=== PATIENT | female | born 1955 | race Caucasian/White ===

== ENCOUNTER → 2017-09-12 | Outpatient (CLI) | payer BC ==
--- NOTE | 2017-09-12 15:28 | BD ---
EXAMINATION TYPE: Axial Bone Density DATE OF EXAM: 09/12/2017 COMPARISON: NONE CLINICAL HISTORY: Postmenopausal female Height: 5 FT 1 1/2 IN Weight: 151 FRAX RISK QUESTIONS: RISK FACTORS HISTORY OF: Active: YES Postmenopausal woman: AGE 58 MEDICATIONS: Thyroid Medications: YES Which medication: LEVOTHYROXINE How Lon-4 MONTHS Additional Medications: LEVOTHYROXINE Additional History: EXAM MEASUREMENTS: Bone mineral densitometry was performed using the [employer]. Bone mineral density as measured about the Lumbar spine is: ----- L1-L4(G/cm2): 1.060 T Score Values are as follows: ----- L2: -1.6 ----- L3: -0.4 ----- L4: -0.9 ----- L1-L4: -1.0 BASELINE Bone mineral density about the R hip (g/cm2): 0.926 Bone mineral density about the L hip (g/cm2): 0.948 T Score values are as follows: -----R Neck: -0.8 -----L Neck: -0.6 -----R Total: 0.1 -----L Total: 0.6 BASELINE IMPRESSION: Osteopenia (T Score between -2.5 and -1) at 2 consecutive levels in the low back. There is slightly increased risk of fracture and the patient may be considered for treatment. Re-Screen 2-5 years. NOTE: T-SCORE=SD OF THE YOUNG ADULT MEAN.
--- NOTE | 2017-09-18 12:36 | MM ---
Reason for exam: screening (asymptomatic). Last mammogram was performed 9 years and 9 months ago. History: Patient is postmenopausal and had first child at age 32. Physical Findings: A clinical breast exam by your physician is recommended on an annual basis and results should be correlated with mammographic findings. MG 3D Screening Mammo W/Cad Bilateral CC and MLO view(s) were taken. Prior study comparison: December 16, 2007, mammogram, performed at [facility]. The breast tissue is heterogeneously dense. This may lower the sensitivity of mammography. There is no discrete abnormality. No significant changes when compared with prior studies. ASSESSMENT: Negative, BI-RAD 1 RECOMMENDATION: Routine screening mammogram of both breasts in 1 year.
== END | disposition home or self-care (01) ==
LOC: RADMAMWWP 12:31
PROVIDERS: ATTEND Family Medicine
DX: Z12.31 Encounter for screening mammogram for malignant neoplasm of breast (principal); M85.80 Other specified disorders of bone density and structure, unspecified site
CPT/HCPCS: 77063; 77067; 77080

== ENCOUNTER → 2020-02-29 | Outpatient (CLI) | payer BC ==
--- NOTE | 2020-03-01 14:21 | MM ---
Reason for exam: screening (asymptomatic). Last mammogram was performed 2 years and 6 months ago. History: Patient is postmenopausal and had first child at age 32. Took hormonal contraceptives for 8 months. Physical Findings: A clinical breast exam by your physician is recommended on an annual basis and results should be correlated with mammographic findings. MG 3D Screening Mammo W/Cad Bilateral CC and MLO view(s) were taken. No prior studies available for comparison. There are scattered fibroglandular densities. There is no discrete abnormality. ASSESSMENT: Negative, BI-RAD 1 RECOMMENDATION: Routine screening mammogram of both breasts in 1 year.
== END | disposition home or self-care (01) ==
LOC: RADMAMWWP 14:35
PROVIDERS: ATTEND Family Medicine
DX: Z12.31 Encounter for screening mammogram for malignant neoplasm of breast (principal)
CPT/HCPCS: 77063; 77067

== ENCOUNTER → 2021-06-16 | Outpatient (CLI) | payer MEDICARE, BC ==
--- NOTE | 2021-06-17 07:54 | CT ---
EXAMINATION TYPE: CT facial bones wo con DATE OF EXAM: 06/16/2021 COMPARISON: none HISTORY: facial pressure on left nasal CT DLP: 465.[address] of the paranasal sinuses was performed in the axial and coronal planes. Bone and soft tissue settings are submitted. None hypoplastic frontal sinuses are noted. The remaining paranasal sinuses demonstrate normal aerati on and development. The paranasal sinuses are free of mucosal thickening or air fluid level. The osteal meatal units are patent bilaterally. There is mild nasal septal deviation from right to left. No bony destructive changes are seen within the field of view. IMPRESSION: No evidence for sinusitis at this time. Nasal septal deviation from right to left mild in degree. Hyp oplastic frontal sinuses.
== END | disposition home or self-care (01) ==
LOC: RADCTMAIN 17:35
PROVIDERS: ATTEND Family Medicine
DX: J34.2 Deviated nasal septum (principal); J34.89 Other specified disorders of nose and nasal sinuses
CPT/HCPCS: 70486

== ENCOUNTER → 2021-08-11 | Outpatient (CLI) | payer MEDICARE, BC ==
--- NOTE | 2021-08-11 11:55 | CA ---
Exercise Stress Test Report Name: Aditi Hughes Exam Date: 08/11/2021 11:15 Exam Location: [place] Stress Ht (in): 62 Wt (lb): 184 BSA: 1.84 Ordering Phys: Danica Harrington DO Referring Phys: Isabel Braden [facility] Technologist: Roger Wilder Age: 66 Gender: F : 1955 Procedure CPT: Indications: R94.31 ABNORMAL ELECTROCARDIOGRAM [ECG] [EKG] ICD-10 Codes: Patient History: ABN ECG, PRE-DIABETIC, FAMILY HX OF HEART DISEASE Medications: ATORVASTATIN,,,,,, METFORMIN,,,,,, LEVOTHYROXINE,,,,,, VIT D,,,,, Meds past 24 hrs: Pretest Chest Pain: STRESS TEST Akin Protocol Exercise Duration (min:sec): 09:[address] Depressions (mm): Angina Score: Welch Score: Resting HR (bpm): 79 Peak HR (bpm): 147 Resting BP (mmHg): 142 / 91 Peak BP (mmHg): 206 / 89 MPHR: 155 Target HR: 132 % MPHR: 95 METS: 10.7 Total Dose: Peak Dose: Atropine: Double Product: 55693 BP Response: Stress Termination: MAX EXERTION/TARGET HR Stress Symptoms: NO SYMPTOMS Stress Summary: ECG ANALYSIS Resting ECG: Sinus rhythm with normal CT interval and QRS duration Stress ECG: Sinus tachycardia without any ischemic changes CONCLUSIONS #1. Negative stress test. #2. Patient did not expect any chest pain. #3. No arrhythmias noted. #4. Excess capacity is fair Dr. Ilda Strickland MD (Electronically Signed) Final Date: 11 August 2021 11:54
== END | disposition home or self-care (01) ==
LOC: RADNMMAIN 10:12
PROVIDERS: ATTEND Family Medicine
DX: R94.31 Abnormal electrocardiogram [ECG] [EKG] (principal)
CPT/HCPCS: 93017

== ENCOUNTER → 2022-11-22 | Outpatient (CLI) | payer MEDICARE, BC ==
--- NOTE | 2022-11-23 09:03 | MM ---
Reason for Exam: Screening (asymptomatic). Last mammogram was performed 1 year(s) and 4 month(s) ago. Patient History: Menarche at age 15. First Full-Term at age 32. Late child-bearing (after 30). Postmenopausal. Hormonal Contraceptives for 8 months. Risk Values: Payton 5 year model risk: 2.1%. NCI Lifetime model risk: 7.5%. Prior Study Comparison: 09/12/2017 Bilateral Screening Mammogram, [facility]. 02/29/2020 Bilateral Screening Mammogram, [facility]. 07/21/2021 Bilateral MG 3D screening mammo w/cad, [facility]. Tissue Density: There are scattered fibroglandular densities. Findings: Analyzed By CAD. There is no suspicious group of microcalcifications or new suspicious mass in either breast. Stable chronic nodularity left breast. Benign calcifications noted. Overall Assessment: Benign, BI-RAD 2 Management: Screening Mammogram of both breasts in 1 year. . Patient should continue monthly self-breast exams. A clinical breast exam by your physician is recommended on an annual basis. This exam should not preclude additional follow-up of suspicious palpable abnormalities. Note on Payton scores and lifetime risk: 1. A Payton score greater than 3% is considered moderate risk. If this is the case, consider specialist referral to assess eligibility for a risk reducing agent. 2. If overall lifetime risk for the development of breast cancer is 20% or higher, the patient may qualify for future screening with alternating mammogram and breast MRI. Electronically signed and approved by: Hugo Moran M.D. Radiologis
== END | disposition home or self-care (01) ==
LOC: RADMAMWWP 14:03
PROVIDERS: ATTEND Family Medicine
DX: Z12.31 Encounter for screening mammogram for malignant neoplasm of breast (principal); Z78.0 Asymptomatic menopausal state
CPT/HCPCS: 77063; 77067

== ENCOUNTER → 2023-12-26 | Outpatient (CLI) | payer MEDICARE, BC ==
--- NOTE | 2023-12-30 11:45 | MM ---
Reason for Exam: Screening (asymptomatic). Last mammogram was performed 1 year(s) and 1 month(s) ago. Patient History: Menarche at age 15. First Full-Term at age 32. Late child-bearing (after 30). Postmenopausal. Patient has history of breast feeding. Hormonal Contraceptives for 8 months. Risk Values: Payton 5 year model risk: 2.1%. NCI Lifetime model risk: 7.2%. Prior Study Comparison: 09/12/2017 Bilateral Screening Mammogram, [facility]. 02/29/2020 Bilateral Screening Mammogram, [facility]. 07/21/2021 Bilateral MG 3D screening mammo w/cad, [facility]. 11/22/2022 Bilateral MG 3D screening mammo w/cad, [facility]. Tissue Density: The breasts are almost entirely fatty. Findings: Analyzed By CAD. Right breast: There is no suspicious group of microcalcifications or new suspicious mass. Left breast: There is no suspicious group of microcalcifications or new suspicious mass. Overall Assessment: Negative, BI-RAD 1 Management: Screening Mammogram of both breasts in [address] [facility] will attempt to contact patient to return for supplemental views and ultrasound if indicated. Patient should continue monthly self-breast exams. A clinical breast exam by your physician is recommended on an annual basis. This exam should not preclude additional follow-up of suspicious palpable abnormalities. Note on Payton scores and lifetime risk: 1. A Payton score greater than 3% is considered moderate risk. If this is the case, consider specialist referral to assess eligibility for a risk reducing agent. 2. If overall lifetime risk for the development of breast cancer is 20% or higher, the patient may qualify for future screening with alternating mammogram and breast MRI. [facility], , 12/30/2023 11:42 AM. Electronically signed and approved by: Tom Carlos DO
== END | disposition home or self-care (01) ==
LOC: RADMAMWWP 12:11
PROVIDERS: ATTEND Family Medicine
CPT/HCPCS: 77063; 77067